=== PATIENT | female | born 1960 | race African-American/Black ===

== ENCOUNTER 2020-11-29 15:36 | Emergency (ER) | payer MEDICARE, OTHER ==
[~2020-11-29] VITALS: Ht 154.9 cm; Wt 73.4 kg
[2020-11-29 16:29] VITALS: BP 145/90
[2020-11-29] MEDS ORDERED: CEPH500C PO (16:40)
[2020-11-29] MEDS ORDERED: MUPI22OI2 TP (16:40)
--- NOTE | 2020-11-29 16:41 | ED.ADGEN ---
Past Medical History Past Medical History: Hypertension Additional Past Medical Histor: nerve pain to hands Past Surgical History: No Surgical History Smoking Status: Current Every Day Smoker Alcohol Use: Occasionally General Adult EDM: Chief Complaint: SKIN PROBLEM HPI: HPI: Patient is a 60 year old AA female who presents emergency department with complaints of a tender hard lump under her left breast for the last 4 to 5 days. Patient reports that she squeezed a large amount of yellow-green pus out of the area last night it has gone down in size significantly. Has any fever, fatigue, body aches, abdominal pain, nausea, vomiting, diarrhea, chest pain, or shortness of breath. Patient reports that she is a type II diabetic. She denies any nipple drainage or bleeding. Patient reports pain below her left sandra ast, she denies any breast tenderness. She currently rates the pain a 10 out of 10 on the pain scale, she denies any alleviating factors, the pain is worse with palpation. Review of Systems: Review of Systems: Complete ROS is negative unless otherwise noted in HPI. Physical Exam: PE: See Above Constitutional: Well developed, well nourished, no acute distress, non-toxic appearance. [] HENT: Normocephalic, atraumatic, bilateral external ears normal, nose normal. [] Eyes: PERRLA, EOMI, conjunctiva normal, no discharge. [] Neck: Normal range of motion, no stridor. [] Cardiovascular:Heart rate regular rhythm Lungs & Thorax: Respirations even and unlabored, no retractions, no respiratory distress Skin: Warm, dry; 1 cm area of erythema with a centralized pustule that drained a scant amount of yellow-green pus present consistent with draining cutaneous abscess just below the left breast, no nipple discharge Extremities: No cyanosis, ROM intact, no edema. [] Neurologic: Alert and oriented X 3, no focal deficits noted. [] Psychologic: Affect normal, judgement normal, mood normal. [] Current Patient Data: Vital Signs: Vital Signs Date Time Temp Pulse Resp B/P (MAP) Pulse Ox O2 Delivery O2 Flow Rate FiO2 11/29/20 16:29 98.1 80 18 145/90 (108) 99 Room Air 98.1 EKG: EKG: [] Heart Score: C/O Chest Pain: No Risk Factors: Risk Factors: DM, Current or recent (<one month) smoker, HTN, HLP, family history of CAD, obesity. Risk Scores: Score 0 - 3: 2.5% MACE over next 6 weeks - Discharge Home Score 4 - 6: 20.3% MACE over next 6 weeks - Admit for Clinical Observation Score 7 - 10: 72.7% MACE over next 6 weeks - Early Invasive Strategies Radiology/Procedures: Radiology/Procedures: [] Course & Med Decision Making: Course & Med Decision Making Pertinent Labs and Imaging studies reviewed. (See chart for details) [] Dragon Disclaimer: Dragon Disclaimer: This electronic medical record was generated, in whole or in part, using a voice recognition dictation system. Departure Departure Impression: Primary Impression: Cutaneous abscess of chest wall Disposition: DC HOME SELF CARE/HOMELESS Condition: STABLE Referrals: NON,STAFF (PCP) Patient Instructions: Abscess, Care After Additional Instructions: Fill the prescription(s) and use as directed. You may take tylenol or ibuprofen as needed for pain. Apply warm, moist packs to the area as needed to help decrease discomfort. Follow up with your primary care doctor or return to the ER in 48 hours to have wound rechecked. Return to the ER sooner if your symptoms worsen or fever develops. Scripts Cephalexin (CEPHALEXIN) 500 Mg Capsule 1 CAP PO QID for 7 Days, #28 CAP 0 Refills Prov: MYA HOOD APRN 11/29/20 Mupirocin (MUPIROCIN OINTMENT) 22 Gm Oint...g. 1 KE TP TID for WOUND CARE for 7 Days, #1 TUBE 0 Refills Prov: MYA HOOD APRN 11/29/20 MYA HOOD APRN Nov 29, 2020 16:40
== END 2020-11-29 17:06 | disposition home or self-care (01) ==
LOC: ER 15:36
DX: L02.213 Cutaneous abscess of chest wall (principal); I10 Essential (primary) hypertension; F17.200 Nicotine dependence, unspecified, uncomplicated
CPT/HCPCS: 99281; 99282